=== PATIENT | female | born 1975 | race American Indian/Alaskan Native ===

== ENCOUNTER 2016-10-27 10:07 | Emergency (ER) | payer MEDICAID ==
[2016-10-27] MEDS ORDERED: VALIUM IV ONE ×2 (11:18→15:10)
[2016-10-27] MEDS ORDERED: NACL 0.9% 1000 ML 1,000 ML IV ONE (11:29)
[2016-10-27] MEDS ORDERED: SUBLIMAZE IV ONE ×2 (11:32→12:00)
[2016-10-27 11:53] LABS: Basophils % (Auto) 0.9 % (0.0-1.8); Eosinophils % (Auto) 2.3 % (0.0-4.3); Hematocrit 36.5 % (30.3-42.9); Hemoglobin 12.3 gm/dl (10.1-14.3); Mean Corpuscular HGB Conc 34 % (30-34); Mean Corpuscular Hemoglobin 32 pg (28-32); Mean Corpuscular Volume 96 fl (79-97); Red Blood Count 3.82 M/mm3 (3.65-5.03); Red Cell Distribution Width 13.3 % (13.2-15.2); White Blood Count 8.4 K/mm3 (4.5-11.0)
[2016-10-27 12:16] LABS: Alanine Aminotransferase 14 units/L (7-56); Albumin 3.5 g/dL (3.9-5); Albumin/Globulin Ratio 0.9 %; Alkaline Phosphatase 73 units/L (35-129); BUN/Creatinine Ratio 16.66; Bilirubin,Total 0.3 mg/dL (0.1-1.2); Blood Urea Nitrogen 10 mg/dL (7-17); Calcium 8.6 mg/dL (8.4-10.2); Carbon Dioxide 21 mmol/L (22-30); Chloride 104.1 mmol/L (98-107); Glucose 94 mg/dL (65-100); Lipase 16 units/L (13-60); Magnesium 1.9 mg/dL (1.7-2.3); Potassium 3.7 mmol/L (3.6-5.0); Sodium 139 mmol/L (137-145); Total Protein 7.3 g/dL (6.3-8.2)
[2016-10-27 12:19] LABS: Anion Gap 18 mmol/L
[2016-10-27 12:27] LABS: Platelet Count 244 K/mm3 (140-440)
[2016-10-27] MEDS ORDERED: ZOFRAN IV ONE ×3 (12:27→15:36)
[2016-10-27] MEDS ORDERED: KEPPRA PO ONE (13:18)
[2016-10-27] MEDS ORDERED: KEPPRA 1,000 MG/NS 0.75% 100ML 100 ML IV ONE (13:24)
--- NOTE | 2016-10-27 14:40 | Emergency Department Report ---
HPI - General Chief Complaint: Seizure Time Seen by Provider: 10/27/16 11:08 - HPI HPI: The patient is a 41-year-old female who presents for evaluation of seizure and abdominal pain. The patient states that she has experienced generalized abdominal pain for the past one day, constant, 10 out of 10 in severity, cramping and sharp in quality, and associated with nausea and multiple episodes of loose watery stools. The patient also reports expressing seizure-like activity or possible one hour prior to arrival, constant and severe for greater than 30 minutes. Regarding the patient's abdominal pain and seizure-like activity, the patient denies fever, blood in the stool, dark tarry stool, dysuria, hematuria, flank pain, genital discharge, headache, neck pain, paresthesias, lateralizing weakness, or other focal neurological deficit. ED Past Medical Hx - Past Medical History Hx Seizures: Yes Hx Psychiatric Treatment: Yes (depression, bipolar, schziophrenia) - Surgical History Additional Surgical History: Wrist fracture repair - Social History Smoking Status: Never Smoker Substance Use Type: None - Medications Home Medications: Home Medications Medication Instructions Recorded Confirmed Last Taken Type risperiDONE [RisperDAL] 6 mg PO BID 06/19/15 10/13/16 10/13/16 History Ibuprofen [Motrin] 800 mg PO Q8HR PRN #60 tablet 08/25/15 10/13/16 10/13/16 Rx traMADol [Ultram] 50 mg PO Q6HR PRN #14 tablet 08/25/15 10/13/16 10/13/16 Rx HYDROcodone/APAP 7.5-325 [[place] 1 each PO Q8HR PRN #10 tablet 10/27/16 Unknown Rx 7.5-325 mg TAB] Ondansetron [Zofran TAB] 4 mg PO Q8HR PRN #14 tablet 10/27/16 Unknown Rx levETIRAcetam [Keppra TAB] 500 mg PO BID #30 tablet 10/27/16 Unknown Rx ED Review of Systems ROS: Stated complaint: SEIZURE Other details as noted in HPI Constitutional: denies: fever ENT: denies: throat or neck pain Respiratory: denies: cough, shortness of breath Cardiovascular: denies: chest pain Endocrine: denies unexplained weight loss or gain Gastrointestinal: reports: abdominal pain, nausea Genitourinary: denies: dysuria Musculoskeletal: denies: leg swelling Skin: denies: rash Neurological: Reports seizure denies: headache Hematological/Lymphatic: denies: easy bleeding or easy bruising Psych: denies sadness or hopelessness Physical Exam - Physical Exam Vital Signs: Vital Signs 10/27/16 10/27/16 10:27 12:39 Temperature 98.7 F Pulse Rate 68 Respiratory 20 Rate Blood Pressure 118/58 O2 Sat by Pulse 28 L 100 Oximetry Physical Exam: General: well-nourished, well-developed, no acute distress Head: Normocephalic, atraumatic Eyes: normal sclera, PERRL, EOM intact, ENT: Mucous membranes are pale and dry Neck: No neck stiffness, no cervical adenopathy Respiratory: Breath sounds equal bilaterally, no wheezing, rales, or rhonchi Cardio: S1 and S2 present, no murmurs, rubs, gallops, capillary refill is delayed Abdomen: Normoactive bowel sounds, soft abdomen, generalized tenderness to palpation present, no rigidity, no guarding or rebound tenderness Musc: No pitting edema Skin: No rash Neuro: alert oriented x4, normal cognition, speech normal, no facial drooping, no uvula or tongue deviation on protrusion, no deficit with rotation of neck or shoulder shrug, no obvious gross motor deficit in the upper or lower extremities bilaterally, no obvious gross sensation deficit, 2+ symmetric reflexes on DTR testing, no coordination deficit with [id number] testing, Babinski downgoing Psych: Normal affect ED Course Vital Signs 10/27/16 10/27/16 10:27 12:39 Temperature 98.7 F Pulse Rate 68 Respiratory 20 Rate Blood Pressure 118/58 O2 Sat by Pulse 28 L 100 Oximetry ED Medical Decision Making - Lab Data Result diagrams: 10/27/16 11:45 10/27/16 11:45 - Medical Decision Making The patient was seen and examined by myself. The patient is placed on a [employer] and continuous pulse ox. On initial evaluation, the patient was found to be in no distress. Evaluation orders are placed. IV access is established and the patient is given 1 L normal saline fluid bolus for treatment of dehydration, and Zofran, and IV fentanyl for pain. Lab results were non-concerning including WBC, hemoglobin, hematocrit, electrolytes, renal function, LFTs, lipase, and neg preg test. The patient was reevaluated and reported her pain persisted. She was given an IV dose of Valium for her pain. The patient was again reevaluated and she now reports that her symptoms markedly improved. The patient is stable for discharge with outpatient follow- up. The patient is given follow-up and return instructions. The patient expressed understanding and agreed with the plan. The patient is discharged in stable condition. Critical care attestation.: If time is entered above; I have spent that time in minutes in the direct care of this critically ill patient, excluding procedure time. ED Disposition Clinical Impression: Pseudoseizure, Acute generalized abdominal pain, Dehydration Disposition: DISCHARGED TO HOME OR SELFCARE Is pt being admited?: No Does the pt Need Aspirin: No Condition: Stable Instructions: Gastroenteritis (ED), Dehydration (ED), Epilepsy (ED) Referrals: PRIMARY CARE, [Primary Care Provider] - 3-5 Days Time of Disposition: 14:35
[2016-10-27] MEDS ORDERED: MORPHINE IV ONE (15:10)
[2016-10-27 16:38] VITALS: BP 123/73
== END 2016-10-27 16:25 | disposition home or self-care (01) ==
LOC: ED 10:07
DX: R56.9 Unspecified convulsions (principal); E86.0 Dehydration; R10.84 Generalized abdominal pain; F31.9 Bipolar disorder, unspecified; F20.9 Schizophrenia, unspecified
CPT/HCPCS: 36415; 80053; 83690; 83735; 83880; 84703; 85025; 87493; 96361; 96365; 96375; 96376; 99284; J1953; J2270; J2405; J3010; J3360; J7030

== ENCOUNTER 2017-04-12 18:10 | Emergency (ER) | payer MEDICAID ==
[2017-04-12 18:36] VITALS: BP 125/87
[2017-04-12 19:10] LABS: Basophils % (Auto) 0.7 % (0.0-1.8); Eosinophils % (Auto) 2.3 % (0.0-4.3); Mean Corpuscular HGB Conc 34 % (30-34); Mean Corpuscular Hemoglobin 33 pg (28-32); Mean Corpuscular Volume 95 fl (79-97); Platelet Count 333 K/mm3 (140-440); Red Blood Count 3.99 M/mm3 (3.65-5.03); Red Cell Distribution Width 13.2 % (13.2-15.2); White Blood Count 8.8 K/mm3 (4.5-11.0)
[2017-04-12 19:22] LABS: Anion Gap 16 mmol/L; Blood Urea Nitrogen 9 mg/dL (7-17); Calcium 9.1 mg/dL (8.4-10.2); Carbon Dioxide 24 mmol/L (22-30); Chloride 99.1 mmol/L (98-107); Glucose 90 mg/dL (65-100); Potassium 3.3 mmol/L (3.6-5.0); Sodium 136 mmol/L (137-145)
--- NOTE | 2017-04-15 11:33 | ED Elopement Review ---
ED Pt Elopement review - Results review Lab results: Laboratory Tests 04/12/17 04/12/17 04/12/17 18:43 18:43 18:43 WBC RBC Hgb Hct MCV MCH MCHC RDW Plt Count Lymph % (Auto) [place] % (Auto) Eos % (Auto) Baso % (Auto) Lymph # [place] # Eos # Baso # Seg Neutrophils % Seg Neutrophils # Sodium 136 L Potassium 3.3 L Chloride 99.1 Carbon Dioxide 24 Anion Gap 16 BUN 9 Creatinine 0.5 L Estimated GFR > 60 BUN/Creatinine Ratio 18.00 Glucose 90 Calcium 9.1 HCG, Qual Negative Plasma/Serum Alcohol < 0.01 04/12/17 18:43 WBC 8.8 RBC 3.99 Hgb 13.0 Hct 38.0 MCV 95 MCH 33 H MCHC 34 RDW 13.2 Plt Count 333 Lymph % (Auto) 29.9 [place] % (Auto) 5.3 Eos % (Auto) 2.3 Baso % (Auto) 0.7 Lymph # 2.6 [place] # 0.5 Eos # 0.2 Baso # 0.1 Seg Neutrophils % 61.8 Seg Neutrophils # 5.5 Sodium Potassium Chloride Carbon Dioxide Anion Gap BUN Creatinine Estimated GFR BUN/Creatinine Ratio Glucose Calcium HCG, Qual Plasma/Serum Alcohol - Call Back decision Pt Call Back Decision: No action required
== END 2017-04-12 21:45 | disposition left against medical advice (07) ==
LOC: ED 18:10
DX: R56.9 Unspecified convulsions (principal); Z53.21 Procedure and treatment not carried out due to patient leaving prior to being seen by health care provider
CPT/HCPCS: 36415; 80048; 84703; 85025; G0480; 80320

== ENCOUNTER 2020-08-17 19:35 | Emergency (ER) | payer MEDICAID ==
[2020-08-17] MEDS ORDERED: SODIUM CHLORIDE 0.9% 1000 ML 1,000 ML IV ONE (20:03)
[2020-08-17] MEDS ORDERED: levETIRAcetam 1000 MG/NS 0.75% 1,000 MG/100 ML BAG IV ONE (20:03)
--- NOTE | 2020-08-17 20:16 | Emergency Department Report ---
HPI - General Chief Complaint: Seizure Time Seen by Provider: 08/17/20 20:03 - HPI HPI: This is a 45-year-old female presents to the emergency department via EMS from home after the patient had a witnessed seizure by her family just prior to arrival. At the time my examination the patient is awake, alert, oriented and in no acute distress. She does admit to a seizure history and also admits to medication noncompliance with her Keppra. She says that she takes 1000 mg 3 times daily. She says that she last had a seizure about 2 months ago. She adm its to some occasional alcohol consumption but no history of alcohol dependence and she did not drink any alcohol today. The patient also appears to have a history of schizophrenia. She says that she has been running out of her Xanax "at the end of the month." Patient does not currently have a primary care physician or neurologist. She was given 2 mg of Ativan in route with EMS. ED Past Medical Hx - Past Medical History Hx Seizures: Yes Hx Psychiatric Treatment: Yes (depression, bipolar, schziophrenia) - Surgical History Past Surgical History?: Yes Additional Surgical History: Wrist fracture repair - Social History Smoking Status: Never Smoker Substance Use Type: Alcohol - Medications Home Medications: Home Medications Medication Instructions Recorded Confirmed Last Taken Type risperiDONE [RisperDAL] 6 mg PO BID 06/19/15 10/13/16 10/13/16 History Ibuprofen [Motrin] 800 mg PO Q8HR PRN #60 tablet 08/25/15 10/13/16 10/13/16 Rx traMADoL [Ultram] 50 mg PO Q6HR PRN #14 tablet 08/25/15 10/13/16 10/13/16 Rx HYDROcodone/APAP 7.5-325 [[place] 1 each PO Q8HR PRN #10 tablet 10/27/16 Unknown Rx 7.5-325 mg TAB] Ondansetron [Zofran TAB] 4 mg PO Q8HR PRN #14 tablet 10/27/16 Unknown Rx levETIRAcetam [Keppra TAB] 1,000 mg PO BID #60 tab 08/17/20 Unknown Rx levETIRAcetam [Keppra TAB] 500 mg PO BID #30 tablet 08/17/20 Unknown Rx ED Review of Systems ROS: Stated complaint: SZ Other details as noted in HPI Comment: All other systems reviewed and negative Constitutional: denies: chills, fever Eyes: denies: eye pain, vision change ENT: denies: ear pain, throat pain Respiratory: denies: cough, shortness of breath Cardiovascular: denies: chest pain, palpitations Gastrointestinal: denies: abdominal pain, vomiting Genitourinary: denies: dysuria, discharge Musculoskeletal: denies: back pain, arthralgia Skin: denies: rash, lesions Neurological: other (seizure). denies: weakness Physical Exam - Physical Exam Vital Signs: Vital Signs 08/17/20 08/17/20 19:43 20:07 Temperature 98.7 F Pulse Rate 76 Respiratory 16 Rate Blood Pressure 130/84 Physical Exam: GENERAL: The patient is well-developed well-nourished. HENT: Normocephalic. Atraumatic. Patient has moist mucous membranes. EYES: Extraocular motions are intact. No nystagmus. NECK: Supple. Trachea is midline. CHEST/LUNGS: Clear to auscultation. There is no respiratory distress noted. HEART/CARDIOVASCULAR: Regular. There is no tachycardia. ABDOMEN: Abdomen is soft, nontender. Patient has normal bowel sounds. SKIN: Skin is warm and dry. NEURO: The patient is awake, alert, and oriented. The patient is cooperative. The patient has no focal neurologic deficits. Normal speech. Cranial nerves II through XII grossly intact. No facial asymmetry. MUSCULOSKELETAL: There is no tenderness or deformity. ED Course Vital Signs 08/17/20 08/17/20 19:43 20:07 Temperature 98.7 F Pulse Rate 76 Respiratory 16 Rate Blood Pressure 130/84 - Reevaluation(s) Reevaluation #1: 08/17/20 22:35 Lab Results 08/17/20 08/17/20 08/17/20 Range/Units 19:55 20:10 20:10 WBC (4.5-11.0) K/mm3 RBC (3.65-5.03) M/mm3 Hgb (10.1-14.3) gm/dl Hct (30.3-42.9) % MCV (79-97) fl MCH (28-32) pg MCHC (30-34) % RDW (13.2-15.2) % Plt Count (140-440) K/mm3 Sodium 134 L (137-145) mmol/L Potassium 4.2 (3.6-5.0) mmol/L Chloride 102.0 (98-107) mmol/L Carbon Dioxide 20 L (22-30) mmol/L Anion Gap 16 mmol/L BUN 13 (7-17) mg/dL Creatinine 0.7 (0.6-1.2) mg/dL Estimated GFR > 60 ml/min BUN/Creatinine Ratio 19 % Glucose 91 (65-100) mg/dL Calcium 8.9 (8.4-10.2) mg/dL Total Bilirubin 0.30 (0.1-1.2) mg/dL Direct Bilirubin < 0.2 (0-0.2) mg/dL Indirect Bilirubin 0.1 mg/dL AST 14 (5-40) units/L ALT 12 (7-56) units/L Alkaline Phosphatase 68 (35-129) units/L Total Creatine Kinase 114 (30-135) units/L Total Protein 7.5 (6.3-8.2) g/dL Albumin 4.1 (3.9-5) g/dL Albumin/Globulin Ratio 1.2 % Plasma/Serum Alcohol < 0.01 (0-0.07) % 08/17/ Range/Units 21:09 WBC 7.8 (4.5-11.0) K/mm3 RBC 3.35 L (3.65-5.03) M/mm3 Hgb 11.7 (10.1-14.3) gm/dl Hct 33.7 (30.3-42.9) % MCV 101 H (79-97) fl MCH 35 H (28-32) pg MCHC 35 H (30-34) % RDW 12.0 L (13.2-15.2) % Plt Count 236 (140-440) K/mm3 Sodium (137-145) mmol/L Potassium (3.6-5.0) mmol/L Chloride (98-107) mmol/L Carbon Dioxide (22-30) mmol/L Anion Gap mmol/L BUN (7-17) mg/dL Creatinine (0.6-1.2) mg/dL Estimated GFR ml/min BUN/Creatinine Ratio % Glucose (65-100) mg/dL Calcium (8.4-10.2) mg/dL Total Bilirubin (0.1-1.2) mg/dL Direct Bilirubin (0-0.2) mg/dL Indirect Bilirubin mg/dL AST (5-40) units/L ALT (7-56) units/L Alkaline Phosphatase (35-129) units/L Total Creatine Kinase (30-135) units/L Total Protein (6.3-8.2) g/dL Albumin (3.9-5) g/dL Albumin/Globulin Ratio % Plasma/Serum Alcohol (0-0.07) % ED Medical Decision Making - Lab Data Result diagrams: 08/17/20 21:09 08/17/20 19:55 - EKG Data -: EKG Interpreted by Me EKG shows normal: sinus rhythm, axis, intervals, QRS complexes, ST-T waves Rate: normal - EKG Data When compared to previous EKG there are: previous EKG unavailable Interpretation: normal EKG - Medical Decision Making This patient presents to the emergency department after having a witnessed seizure at home. Since being in the emergency department she has been awake, alert, oriented. There is no focal, motor or sensory deficits and her cranial nerves are intact. Patient was loaded with 1 g of Keppra. EKG did not have any morphology consistent with ST elevation myocardial infarction or any arrhythmia. The patient's labs have been mostly unremarkable including CBC, metabolic panel, CK level, and blood alcohol level. As the patient has a known seizure history and has been noncompliant with her medications, and since the patient has only had 1 seizure, I did not feel that advanced CT imaging of the head was necessary at this time. She has been reevaluated multiple times over about 3 hours in this emergency department without any return of any seizure-like activity. She will be discharged home to follow-up with primary care and neurology. The patient previously was on 500 mg of Keppra twice daily when she was last here in 2017. The patient says that she is on 3 g of Keppra a day, h owever, the patient has been without her medication for 1 to 2 months. She will be restarted on Keppra at 1000 mg twice daily. We discussed staying away from alcohol, heavy caffeine use and getting appropriate amount of sleep. We also discussed that the patient is unable to drive a vehicle or operate heavy machinery for at least 6 months, or until cleared by a neurologist. She will return to the emergency department with any worsening of her symptoms or with any acute distress. Critical care attestation.: If time is entered above; I have spent that time in minutes in the direct care of this critically ill patient, excluding procedure time. ED Disposition Clinical Impression: Seizure disorder Disposition: DC-01 TO HOME OR SELFCARE Is pt being admited?: No Condition: Stable Instructions: Recurrent Seizures Adult (ED) Additional Instructions: Please follow-up with a primary care physician in the next few days. I am also giving you a referral for a local neurologist, Dr. Mcnamara, to follow-up regarding your seizure disorder. Take the medications as prescribed. Try to stay away from alcohol, heavy caffeine use. Please try to get 8 hours of uninterrupted sleep at night. Return to the emergency department with any worsening of your symptoms, new or concerning symptoms not addressed during this current emergency department visit, or with any acute distress. Prescriptions: levETIRAcetam [Keppra TAB] 1,000 mg PO BID #60 tab levETIRAcetam [Keppra TAB] 500 mg PO BID #30 tablet Referrals: MINI MCNAMARA MD [Referring] - 3-5 Days YAMILET HEALY MD [Staff Physician] - 3-5 Days [facility] [Provider Group] - 3-5 Days Time of Disposition: 22:12
[2020-08-17 20:41] LABS: Blood Urea Nitrogen 13 mg/dL (7-17); Calcium 8.9 mg/dL (8.4-10.2); Hemolysis Index 85
[2020-08-17 20:52] LABS: BUN/Creatinine Ratio 19
[2020-08-17 21:00] LABS: Alanine Aminotransferase 12 units/L (7-56); Albumin 4.1 g/dL (3.9-5)
[2020-08-17 21:10] LABS: Bilirubin,Direct < 0.2 mg/dL (0-0.2)
[2020-08-17 21:50] LABS: Hematocrit 33.7 % (30.3-42.9); Hemoglobin 11.7 gm/dl (10.1-14.3); Mean Corpuscular HGB Conc 35 % (30-34); Mean Corpuscular Volume 101 fl (79-97); Platelet Count 236 K/mm3 (140-440); Red Blood Count 3.35 M/mm3 (3.65-5.03)
[2020-08-17 22:35] VITALS: BP 116/66
== END 2020-08-18 23:00 | disposition home or self-care (01) ==
LOC: ED 19:35
DX: G40.909 Epilepsy, unspecified, not intractable, without status epilepticus (principal)
CPT/HCPCS: 36415; 80048; 80076; 82550; 85027; 93005; 96374; 99283; J1953; J7030; 80320; G0480

== ENCOUNTER 2020-10-16 10:05 | Emergency (ER) | payer MEDICAID ==
[2020-10-16] MEDS ORDERED: levETIRAcetam 1000 MG/NS 0.75% 1,000 MG/100 ML BAG IV ONE (11:11)
--- NOTE | 2020-10-16 11:14 | Emergency Department Report ---
HPI - General Chief Complaint: Seizure Time Seen by Provider: 10/16/20 11:07 - HPI HPI: This is a 45-year-old -[place] female presents to the emergency department via EMS from home after she was found seizing by family prior to presentation. Patient was given 2 mg of Ativan intranasally in route. I saw this patient 2 months ago for similar symptoms. She has a history of seizure disorder for which the patient is on Keppra. She also has a history of schizophrenia and there is previous record of "pseudoseizures." At the time of my examination the patient is either postictal or sedated and is currently a poor historian. ED Past Medical Hx - Past Medical History Previous Medical History?: Yes Hx Seizures: Yes Hx Psychiatric Treatment: Yes (depression, bipolar, schziophrenia) - Surgical History Additional Surgical History: Wrist fracture repair - Social History Smoking Status: Unknown if ever smoked - Medications Home Medications: Home Medications Medication Instructions Recorded Confirmed Last Taken Type risperiDONE [RisperDAL] 6 mg PO BID 06/19/15 10/13/16 10/13/16 History Ibuprofen [Motrin] 800 mg PO Q8HR PRN #60 tablet 08/25/15 10/13/16 10/13/16 Rx traMADoL [Ultram] 50 mg PO Q6HR PRN #14 tablet 08/25/15 10/13/16 10/13/16 Rx HYDROcodone/APAP 7.5-325 [[place] 1 each PO Q8HR PRN #10 tablet 10/27/16 Unknown Rx 7.5-325 mg TAB] Ondansetron [Zofran TAB] 4 mg PO Q8HR PRN #14 tablet 10/27/16 Unknown Rx levETIRAcetam [Keppra TAB] 1,000 mg PO BID #60 tab 08/17/20 Unknown Rx levETIRAcetam [Keppra TAB] 500 mg PO BID #30 tablet 08/17/20 Unknown Rx ED Review of Systems ROS: Stated complaint: SEIZURE Other details as noted in HPI Comment: Unobtainable due to pts medical conditions Physical Exam - Physical Exam Physical Exam: GENERAL: The patient is well-developed well-nourished. HENT: Normocephalic. Atraumatic. Patient has moist mucous membranes. EYES: Extraocular motions are intact. NECK: Supple. Trachea is midline. CHEST/LUNGS: Clear to auscultation. There is no respiratory distress noted. HEART/CARDIOVASCULAR: Regular. There is no tachycardia. There is no murmur. ABDOMEN: Abdomen is soft, nontender. Patient has normal bowel sounds. There is no abdominal distention. SKIN: Skin is warm and dry. NEURO: The patient is awake, alert, and cooperative. The patient has no focal neurologic deficits. Normal speech. Cranial nerves II through XII grossly intact. MUSCULOSKELETAL: There is no tenderness or deformity. There is no limitation range of motion. ED Medical Decision Making - Lab Data Result diagrams: 10/16/20 11:19 10/16/20 11:19 Lab Results 10/16/20 10/16/20 10/16/20 Range/Units 11:19 11:19 11:19 WBC 7.3 (4.5-11.0) K/mm3 RBC 3.52 L (3.65-5.03) M/mm3 Hgb 12.5 (10.1-14.3) gm/dl Hct 34.6 (30.3-42.9) % MCV 98 H (79-97) fl MCH 36 H (28-32) pg MCHC 36 H (30-34) % RDW 12.9 L (13.2-15.2) % Plt Count 258 (140-440) K/mm3 Lymph % (Auto) 23.4 (13.4-35.0) % [place] % (Auto) 6.6 (0.0-7.3) % Eos % (Auto) 0.7 (0.0-4.3) % Baso % (Auto) 0.9 (0.0-1.8) % Lymph # (Auto) 1.7 (1.2-5.4) K/mm3 [place] # (Auto) 0.5 (0.0-0.8) K/mm3 Eos # (Auto) 0.1 (0.0-0.4) K/mm3 Baso # (Auto) 0.1 (0.0-0.1) K/mm3 Seg Neutrophils % 68.4 (40.0-70.0) % Seg Neutrophils # 5.0 (1.8-7.7) K/mm3 Sodium 139 (137-145) mmol/L Potassium 3.7 (3.6-5.0) mmol/L Chloride 106.4 (98-107) mmol/L Carbon Dioxide 20 L (22-30) mmol/L Anion Gap 16 mmol/L BUN 11 (7-17) mg/dL Creatinine 0.6 (0.6-1.2) mg/dL Estimated GFR > 60 ml/min BUN/Creatinine Ratio 18 % Glucose 74 (65-100) mg/dL Calcium 8.9 (8.4-10.2) mg/dL Total Bilirubin 0.50 (0.1-1.2) mg/dL AST 19 (5-40) units/L ALT 14 (7-56) units/L Alkaline Phosphatase 60 (35-129) units/L Total Creatine Kinase (30-135) units/L Total Protein 7.6 (6.3-8.2) g/dL Albumin 4.1 (3.9-5) g/dL Albumin/Globulin Ratio 1.2 % Urine Color (Yellow) Urine Turbidity (Clear) Urine pH (5.0-7.0) Ur Specific [place] (1.003-1.030) Urine Protein (Negative) mg/dL Urine Glucose (UA) (Negative) mg/dL Urine Ketones (Negative) mg/dL Urine Blood (Negative) Urine Nitrite (Negative) Urine Bilirubin (Negative) Urine Urobilinogen (<2.0) mg/dL Ur Leukocyte Esterase (Negative) Urine WBC (Auto) (0.0-6.0) /HPF Urine RBC (Auto) (0.0-6.0) /HPF U Epithel Cells (Auto) (0-13.0) /HPF Urine Mucus /HPF Urine Opiates Screen Urine Methadone Screen Ur Barbiturates Screen Ur Phencyclidine Scrn Ur Amphetamines Screen U Benzodiazepines Scrn Urine Cocaine Screen U Marijuana (THC) Screen Drugs of Abuse Note Plasma/Serum Alcohol 0.08 H (0-0.07) % 10/16/20 10/16/20 10/16/20 Range/Units 11:19 13:00 13:00 WBC (4.5-11.0) K/mm3 RBC (3.65-5.03) M/mm3 Hgb (10.1-14.3) gm/dl Hct (30.3-42.9) % MCV (79-97) fl MCH (28-32) pg MCHC (30-34) % RDW (13.2-15.2) % Plt Count (140-440) K/mm3 Lymph % (Auto) (13.4-35.0) % [place] % (Auto) (0.0-7.3) % Eos % (Auto) (0.0-4.3) % Baso % (Auto) (0.0-1.8) % Lymph # (Auto) (1.2-5.4) K/mm3 [place] # (Auto) (0.0-0.8) K/mm3 Eos # (Auto) (0.0-0.4) K/mm3 Baso # (Auto) (0.0-0.1) K/mm3 Seg Neutrophils % (40.0-70.0) % Seg Neutrophils # (1.8-7.7) K/mm3 Sodium (137-145) mmol/L Potassium (3.6-5.0) mmol/L Chloride (98-107) mmol/L Carbon Dioxide (22-30) mmol/L Anion Gap mmol/L BUN (7-17) mg/dL Creatinine (0.6-1.2) mg/dL Estimated GFR ml/min BUN/Creatinine Ratio % Glucose (65-100) mg/dL Calcium (8.4-10.2) mg/dL Total Bilirubin (0.1-1.2) mg/dL AST (5-40) units/L ALT (7-56) units/L Alkaline Phosphatase (35-129) units/L Total Creatine Kinase 244 H (30-135) units/L Total Protein (6.3-8.2) g/dL Albumin (3.9-5) g/dL Albumin/Globulin Ratio % Urine Color Yellow (Yellow) Urine Turbidity Clear (Clear) Urine pH 5.0 (5.0-7.0) Ur Specific [place] 1.012 (1.003-1.030) Urine Protein <15 mg/dl (Negative) mg/dL Urine Glucose (UA) Neg (Negative) mg/dL Urine Ketones Tr (Negative) mg/dL Urine Blood Neg (Negative) Urine Nitrite Neg (Negative) Urine Bilirubin Neg (Negative) Urine Urobilinogen < 2.0 (<2.0) mg/dL Ur Leukocyte Esterase Neg (Negative) Urine WBC (Auto) 4.0 (0.0-6.0) /HPF Urine RBC (Auto) 4.0 (0.0-6.0) /HPF U Epithel Cells (Auto) 2.0 (0-13.0) /HPF Urine Mucus Few /HPF Urine Opiates Screen Negative Urine Methadone Screen Negative Ur Barbiturates Screen Negative Ur Phencyclidine Scrn Negative Ur Amphetamines Screen Positive U Benzodiazepines Scrn Positive Urine Cocaine Screen Positive U Marijuana (THC) Screen Positive Drugs of Abuse Note Disclamer Plasma/Serum Alcohol (0-0.07) % - EKG Data -: EKG Interpreted by Me EKG shows normal: sinus rhythm, axis, intervals, QRS complexes, ST-T waves Rate: normal - EKG Data When compared to previous EKG there are: previous EKG unavailable Interpretation: normal EKG - Medical Decision Making This patient presented to the emergency department after an alleged witnessed seizure prior to presentation. The patient does present either postictal or slightly sedated. However, shortly after her arrival the patient became more awake and oriented and remained so throughout the rest of her ED course. The patient did admit to drinking alcohol last night. The blood alcohol level came back at 0.08 when it was first drawn this morning, which leads me to believe that she had a high blood alcohol level when she went to sleep last night. The patient's labs also show a urine drug screen positive for amphetamines, cocaine, marijuana and benzodiazepines. Vital signs have been reassuring throughout her ED course including being afebrile. The patient has been reevaluated multiple t imes over more than 7 hours and there has been no further seizure-like activity or any deficits seen. The patient has no focal, motor or sensory deficits and her cranial nerves are intact. She was loaded with a gram of Keppra. The patient will be discharged home to follow-up with primary care and neurology. We discussed staying away from alcohol and illicit drugs as this will decrease her seizure threshold. The patient understands that she is unable to drive or operate heavy machinery for at least 6 months, or until cleared by neurology. She will return to the closest emergency department with any further seizure- like activity, any new concerns or complaints, or with any acute distress. Critical Care Time: No Critical care attestation.: If time is entered above; I have spent that time in minutes in the direct care of this critically ill patient, excluding procedure time. ED Disposition Clinical Impression: Seizure, Polysubstance abuse Disposition: TO HOME OR SELFCARE Is pt being admited?: No Condition: Stable Instructions: Substance Use Disorder, Seizure, Adult Additional Instructions: Please follow-up with a primary care physician in the next few days. I have also given you a referral for a local neurologist, Dr. Mcnamara, to follow-up regarding your seizure disorder. Due to your seizures, you are not allowed to drive or operate any heavy machinery for at least 6 months or until cleared by a neurologist to do so. Please avoid any further alcohol consumption or illicit drug use as this will decrease your seizure threshold. Make sure to try and get 8 hours of uninterrupted sleep per night. Please avoid any heavy caffeine use. Return to the emergency department with any worsening of your symptoms, new or concerning symptoms not addressed during this current emergency department visit, or with any acute distress. Referrals: PRIMARY CAREMD [Primary Care Provider] - 2-3 Days MINI MCNAMARA MD [Referring] - 3-5 Days Time of Disposition: 16:01
[2020-10-16 11:39] LABS: Basophils # (Auto) 0.1 K/mm3 (0.0-0.1); Basophils % (Auto) 0.9 % (0.0-1.8); Eosinophils # (Auto) 0.1 K/mm3 (0.0-0.4); Eosinophils % (Auto) 0.7 % (0.0-4.3); Hematocrit 34.6 % (30.3-42.9); Hemoglobin 12.5 gm/dl (10.1-14.3); Lymphocytes # (Auto) 1.7 K/mm3 (1.2-5.4); Lymphocytes % (Auto) 23.4 % (13.4-35.0); Mean Corpuscular HGB Conc 36 % (30-34); Mean Corpuscular Volume 98 fl (79-97); Monocytes # (Auto) 0.5 K/mm3 (0.0-0.8); Monocytes % (Auto) 6.6 % (0.0-7.3); Platelet Count 258 K/mm3 (140-440); Red Blood Count 3.52 M/mm3 (3.65-5.03); Red Cell Distribution Width 12.9 % (13.2-15.2)
[2020-10-16 11:53] LABS: Alanine Aminotransferase 14 units/L (7-56); Albumin 4.1 g/dL (3.9-5); Blood Urea Nitrogen 11 mg/dL (7-17); Calcium 8.9 mg/dL (8.4-10.2); Hemolysis Index 12
[2020-10-16 11:54] LABS: BUN/Creatinine Ratio 18
[2020-10-16] MEDS ORDERED: THIAMINE 100 MG, FOLIC ACID 1 MG, MULTIPLE VITAMIN INJ, ADULT 10 ML in SODIUM CHLORIDE ... IV ONE (12:21)
[2020-10-16 15:43] LABS: Bilirubin,Urine NEG (Negative); Blood,Urine NEG (Negative); Color,Urine Yellow (Yellow); Mucus,Urine FEW /HPF; Protein,Urine <15 mg/dL mg/dL (Negative); Urobilinogen,Urine < 2.0 mg/dL (<2.0)
[2020-10-16 15:44] LABS: Methadone Screen,Urine Negative; Opiate Screen,Urine Negative
[2020-10-16 15:59] LABS: Amphetamine Screen,Urine Positive; Benzodiazepines Screen,Urine Positive; Cannabinoid Screen,Urine Positive; Cocaine Screen,Urine Positive
[2020-10-16 16:46] VITALS: BP 123/74
== END 2020-10-16 16:02 | disposition home or self-care (01) ==
LOC: ED 10:05
DX: R56.9 Unspecified convulsions (principal); F19.10 Other psychoactive substance abuse, uncomplicated; F31.9 Bipolar disorder, unspecified; F20.9 Schizophrenia, unspecified; Z98.890 Other specified postprocedural states; Z79.1 Long term (current) use of non-steroidal anti-inflammatories (NSAID); Z79.899 Other long term (current) drug therapy; Z88.8 Allergy status to other drugs, medicaments and biological substances
CPT/HCPCS: 36415; 80053; 80307; 81001; 82550; 85025; 93005; 96365; 96366; 96367; 99284; J1953; J3411; J7030; 80320; G0480

== ENCOUNTER 2021-05-30 14:59 | Emergency (ER) | payer MEDICAID ==
[2021-05-30] MEDS ORDERED: SODIUM CHLORIDE 0.9% 1000 ML 1,000 ML IV ONE (16:30)
[2021-05-30] MEDS ORDERED: levETIRAcetam 1000 MG/NS 0.75% 1,000 MG/100 ML BAG IV ONE (16:30)
--- NOTE | 2021-05-30 16:34 | Emergency Department Report ---
HPI - General Chief Complaint: Seizure Time Seen by Provider: 05/30/21 16:30 - HPI HPI: This is a 45-year-old -[place] female presents to the emergency department via EMS from home with complaint of seizures. The patient does have a seizure history for which she takes Keppra. She is compliant with 1000 mg twice daily but was slightly late on taking her medication today. Patient says that she last had a seizure about 3 weeks ago and was seen at [facility]. She complains of a mild generalized headache and some body aches, but denies any fev er, chest pain, shortness of breath, vision change, slurred speech, numbness or paresthesias. The patient had a witnessed seizure with family just prior to presentation and was just given her Keppra prior to the seizure. The patient was still slightly postictal when EMS arrived, but they say that she had another witnessed seizure with them and she was given 2 mg of Ativan. At the time of my examination the patient is awake, alert, oriented. ED Past Medical Hx - Past Medical History Hx Seizures: Yes Hx Psychiatric Treatment: Yes (depression, bipolar, schziophrenia) - Surgical History Additional Surgical History: Wrist fracture repair - Social History Smoking Status: Unknown if ever smoked - Medications Home Medications: Home Medications Medication Instructions Recorded Confirmed Last Taken Type risperiDONE [RisperDAL] 6 mg PO BID 06/19/15 10/13/16 10/13/16 History Ibuprofen [Motrin] 800 mg PO Q8HR PRN #60 tablet 08/25/15 10/13/16 10/13/16 Rx traMADoL [Ultram] 50 mg PO Q6HR PRN #14 tablet 08/25/15 10/13/16 10/13/16 Rx HYDROcodone/APAP 7.5-325 [[place] 1 each PO Q8HR PRN #10 tablet 10/27/16 Unknown Rx 7.5-325 mg TAB] Ondansetron [Zofran TAB] 4 mg PO Q8HR PRN #14 tablet 10/27/16 Unknown Rx levETIRAcetam [Keppra TAB] 1,000 mg PO BID #60 tab 08/17/20 Unknown Rx levETIRAcetam [Keppra TAB] 500 mg PO BID #30 tablet 08/17/20 Unknown Rx ED Review of Systems ROS: Stated complaint: SEIZURE Other details as noted in HPI Comment: All other systems reviewed and negative Constitutional: denies: chills, fever Eyes: denies: eye pain, vision change ENT: denies: ear pain, throat pain Respiratory: denies: cough, shortness of breath Cardiovascular: denies: chest pain, palpitations Gastrointestinal: denies: abdominal pain, vomiting Genitourinary: denies: dysuria, discharge Musculoskeletal: myalgia. denies: joint swelling Skin: denies: rash, lesions Neurological: headache, other (Seizure). denies: weakness, numbness, paresthesi as Physical Exam - Physical Exam Physical Exam: GENERAL: The patient is well-developed well-nourished. HENT: Normocephalic. Atraumatic. Patient has moist mucous membranes. EYES: Extraocular motions are intact. No nystagmus. NECK: Supple. Trachea is midline. CHEST/LUNGS: Clear to auscultation. There is no respiratory distress noted. HEART/CARDIOVASCULAR: Regular. There is no tachycardia. There is no murmur. ABDOMEN: Abdomen is soft, nontender. Patient has normal bowel sounds. SKIN: Skin is warm and dry. NEURO: The patient is awake, alert, and oriented. The patient is cooperative. The patient has no focal neurologic deficits. Normal speech. Cranial nerves II through XII grossly intact. No facial asymmetry. No pronator drift or dysmetria. MUSCULOSKELETAL: There is no tenderness or deformity. There is no limitation range of motion. ED Medical Decision Making - Lab Data Result diagrams: 05/30/21 16:43 05/30/21 16:43 Lab Results 05/30/21 05/30/21 05/30/21 Range/Units 16:43 16:43 16:43 WBC 6.9 (4.5-11.0) K/mm3 RBC 3.44 L (3.65-5.03) M/mm3 Hgb 12.2 (10.1-14.3) gm/dl Hct 34.2 (30.3-42.9) % MCV 100 H (79-97) fl MCH 35 H (28-32) pg MCHC 36 H (30-34) % RDW 13.7 (13.2-15.2) % Plt Count 320 (140-440) K/mm3 Lymph % (Auto) 29.8 (13.4-35.0) % [place] % (Auto) 9.3 H (0.0-7.3) % Eos % (Auto) 1.3 (0.0-4.3) % Baso % (Auto) 0.3 (0.0-1.8) % Lymph # (Auto) 2.0 (1.2-5.4) K/mm3 [place] # (Auto) 0.6 (0.0-0.8) K/mm3 Eos # (Auto) 0.1 (0.0-0.4) K/mm3 Baso # (Auto) 0.0 (0.0-0.1) K/mm3 Seg Neutrophils % 59.3 (40.0-70.0) % Seg Neutrophils # 4.1 (1.8-7.7) K/mm3 Sodium 137 (137-145) mmol/L Potassium 3.7 (3.6-5.0) mmol/L Chloride 101.7 (98-107) mmol/L Carbon Dioxide 24 (22-30) mmol/L Anion Gap 15 mmol/L BUN 11 (7-17) mg/dL Creatinine 0.6 (0.6-1.2) mg/dL Estimated GFR > 60 ml/min BUN/Creatinine Ratio 18 % Glucose 75 (65-100) mg/dL Calcium 9.2 (8.4-10.2) mg/dL Total Bilirubin 0.40 (0.1-1.2) mg/dL AST 16 (5-40) units/L ALT 10 (7-56) units/L Alkaline Phosphatase 70 (35-129) units/L Total Creatine Kinase 215 H (30-135) units/L Total Protein 7.3 (6.3-8.2) g/dL Albumin 4.1 (3.9-5) g/dL Albumin/Globulin Ratio 1.3 % Urine Color (Yellow) Urine Turbidity (Clear) Urine pH (5.0-7.0) Ur Specific [place] (1.003-1.030) Urine Protein (Negative) mg/dL Urine Glucose (UA) (Negative) mg/dL Urine Ketones (Negative) mg/dL Urine Blood (Negative) Urine Nitrite (Negative) Urine Bilirubin (Negative) Urine Urobilinogen (<2.0) mg/dL Ur Leukocyte Esterase (Negative) Urine WBC (Auto) (0.0-6.0) /HPF Urine RBC (Auto) (0.0-6.0) /HPF U Epithel Cells (Auto) (0-13.0) /HPF Urine Bacteria (Auto) (Negative) /HPF Urine Mucus /HPF Urine Opiates Screen Urine Methadone Screen Ur Barbiturates Screen Ur Phencyclidine Scrn Ur Amphetamines Screen U Benzodiazepines Scrn Urine Cocaine Screen U Marijuana (THC) Screen Drugs of Abuse Note 05/30/21 05/30/21 Range/Units 18:28 18:28 WBC (4.5-11.0) K/mm3 RBC (3.65-5.03) M/mm3 Hgb (10.1-14.3) gm/dl Hct (30.3-42.9) % MCV (79-97) fl MCH (28-32) pg MCHC (30-34) % RDW (13.2-15.2) % Plt Count (140-440) K/mm3 Lymph % (Auto) (13.4-35.0) % [place] % (Auto) (0.0-7.3) % Eos % (Auto) (0.0-4.3) % Baso % (Auto) (0.0-1.8) % Lymph # (Auto) (1.2-5.4) K/mm3 [place] # (Auto) (0.0-0.8) K/mm3 Eos # (Auto) (0.0-0.4) K/mm3 Baso # (Auto) (0.0-0.1) K/mm3 Seg Neutrophils % (40.0-70.0) % Seg Neutrophils # (1.8-7.7) K/mm3 Sodium (137-145) mmol/L Potassium (3.6-5.0) mmol/L Chloride (98-107) mmol/L Carbon Dioxide (22-30) mmol/L Anion Gap mmol/L BUN (7-17) mg/dL Creatinine (0.6-1.2) mg/dL Estimated GFR ml/min BUN/Creatinine Ratio % Glucose (65-100) mg/dL Calcium (8.4-10.2) mg/dL Total Bilirubin (0.1-1.2) mg/dL AST (5-40) units/L ALT (7-56) units/L Alkaline Phosphatase (35-129) units/L Total Creatine Kinase (30-135) units/L Total Protein (6.3-8.2) g/dL Albumin (3.9-5) g/dL Albumin/Globulin Ratio % Urine Color Yellow (Yellow) Urine Turbidity Clear (Clear) Urine pH 7.0 (5.0-7.0) Ur Specific [place] 1.031 H (1.003-1.030) Urine Protein 30 mg/dl (Negative) mg/dL Urine Glucose (UA) Neg (Negative) mg/dL Urine Ketones Tr (Negative) mg/dL Urine Blood Neg (Negative) Urine Nitrite Neg (Negative) Urine Bilirubin Neg (Negative) Urine Urobilinogen 2.0 (<2.0) mg/dL Ur Leukocyte Esterase Neg (Negative) Urine WBC (Auto) 1.0 (0.0-6.0) /HPF Urine RBC (Auto) 3.0 (0.0-6.0) /HPF U Epithel Cells (Auto) 3.0 (0-13.0) /HPF Urine Bacteria (Auto) 1+ (Negative) /HPF Urine Mucus 2+ /HPF Urine Opiates Screen Negative Urine Methadone Screen Negative Ur Barbiturates Screen Negative Ur Phencyclidine Scrn Negative Ur Amphetamines Screen Negative U Benzodiazepines Scrn Positive Urine Cocaine Screen Negative U Marijuana (THC) Screen Positive Drugs of Abuse Note Disclamer - EKG Data -: EKG Interpreted by Or EKG shows normal: sinus rhythm, axis, intervals, QRS complexes, ST-T waves Rate: normal - EKG Data When compared to previous EKG there are: no significant change Interpretation: unchanged when compared t (10/16/20) - Medical Decision Making This patient presents to the emergency department after having a seizure at home and a seizure witnessed by EMS. However, at the time of my initial examination the patient is awake, alert, oriented, AAO x3. On examination she does not have any focal, motor or sensory deficits and her cranial nerves are intact. She was loaded with a gram of Keppra. EKG does not have any morphology consistent with ST elevation myocardial infarction. Labs have been unremarkable including CBC, metabolic panel, CK level, urinalysis. UDS is positive for benzodiazepines but she did receive Ativan. It is also positive for marijuana. Vital signs have been reassuring throughout her ED course including being afebrile. She was reevaluated multiple times over almost 5 hours and there has been no further seizure-like activity. As the patient did not have any neurological deficits and has a seizure history, I did not feel that the patient required CT imaging of the head at this time. She appears safe for discharge home and has been given outpatient referral for primary care and neurology. We discussed avoiding any alcohol, illicit drug use, excessive caffeine, and trying to get appropriate sleep. She will return to the emergency department with any worsening of her symptoms or with any acute distress. Critical Care Time: No Critical care attestation.: If time is entered above; I have spent that time in minutes in the direct care of this critically ill patient, excluding procedure time. ED Disposition Clinical Impression: Seizure disorder Disposition: - TO HOME OR SELFCARE Is pt being admited?: No Condition: Stable Instructions: Seizure, Adult Additional Instructions: Please follow-up with a primary care physician in the next few days. I have given you a referral for a local primary care physician, Dr. Sanchez, and a [facility]. I have given you a referral for a local neurologist, Dr. Mcnamara, to follow-up regarding your seizure history. At your request, I have also given you a referral for the local wound care clinic to evaluate the long-term michelle that you have in place. Please avoid any alcohol use, excessive caffeine use, and try to get 8 hours of uninterrupted sleep at night. Take all medications as prescribed. Due to your seizures, you are not allowed to drive or operate any heavy machinery for at least 6 months or until cleared by your primary care physician or neurologist. Return to the emergency department with any worsening of your symptoms, new or concerning symptoms not addressed during this current emergency department visit, or with any acute distress. Referrals: FÉLIX BLANDON MD [Primary Care Provider] - 3-5 Days MICKEY SANCHEZ MD [Staff Physician] - 3-5 Days MINI MCNAMARA MD [Referring] - 3-5 Days [facility] [Provider Group] - 3-5 Days [facility] [Outside] - 3-5 Days Time of Disposition: 19:21
[2021-05-30 17:04] LABS: Basophils % (Auto) 0.3 % (0.0-1.8); Eosinophils # (Auto) 0.1 K/mm3 (0.0-0.4); Eosinophils % (Auto) 1.3 % (0.0-4.3); Hematocrit 34.2 % (30.3-42.9); Hemoglobin 12.2 gm/dl (10.1-14.3); Lymphocytes % (Auto) 29.8 % (13.4-35.0); Mean Corpuscular HGB Conc 36 % (30-34); Mean Corpuscular Volume 100 fl (79-97); Monocytes # (Auto) 0.6 K/mm3 (0.0-0.8); Monocytes % (Auto) 9.3 % (0.0-7.3); Platelet Count 320 K/mm3 (140-440); Red Blood Count 3.44 M/mm3 (3.65-5.03); Red Cell Distribution Width 13.7 % (13.2-15.2)
[2021-05-30 17:24] LABS: Alanine Aminotransferase 10 units/L (7-56); Albumin 4.1 g/dL (3.9-5); Blood Urea Nitrogen 11 mg/dL (7-17); Calcium 9.2 mg/dL (8.4-10.2); Hemolysis Index 5
[2021-05-30 17:25] LABS: BUN/Creatinine Ratio 18
[2021-05-30 18:05] VITALS: BP 123/68
[2021-05-30 18:54] LABS: Bacteria,Urine 1+ /HPF (Negative); Bilirubin,Urine NEG (Negative); Blood,Urine NEG (Negative); Color,Urine Yellow (Yellow); Mucus,Urine 2+ /HPF
[2021-05-30 19:25] LABS: Amphetamine Screen,Urine Negative; Cocaine Screen,Urine Negative; Methadone Screen,Urine Negative; Opiate Screen,Urine Negative
[2021-05-30 20:08] LABS: Benzodiazepines Screen,Urine Positive; Cannabinoid Screen,Urine Positive
--- NOTE | 2021-05-31 14:32 | Electrocardiograph Report ---
[facility] Test Date: 2021-05-30 Test Time: 20:21:51 Pat Name: PAT LEVY Department: Room: Gender: F Virologist: LINDSEY : 1975 Requested By: HAN PAN Order Number: [id number] Reading MD: Jeannie Foreman Measurements Intervals [place] Rate: 72 P: 65 ID: [id number] QRS: 32 QRSD: 87 T: 18 QT: 392 QTc: 430 Interpretive Statements Sinus rhythm No previous ECG available for comparison Electronically Signed On 05-31-2021 14:32:44 EDT by Jeannie Foreman
== END 2021-05-30 20:46 | disposition home or self-care (01) ==
LOC: ED 14:59
DX: G40.909 Epilepsy, unspecified, not intractable, without status epilepticus (principal); F31.9 Bipolar disorder, unspecified; F20.9 Schizophrenia, unspecified; Z98.890 Other specified postprocedural states
CPT/HCPCS: 36415; 80053; 80307; 81001; 82550; 85025; 93005; 96365; 96366; 99284; J1953; J7030

== ENCOUNTER 2021-07-07 19:39 | Emergency (ER) | payer MEDICAID ==
[2021-07-07] MEDS ORDERED: HYDROcodone/ACETAMINOPHEN 5-325 MG TAB PO ONE (20:41)
[2021-07-07] MEDS ORDERED: levETIRAcetam 1000 MG/NS 0.75% 1,000 MG/100 ML BAG IV ONE (20:41)
[2021-07-07] MEDS ORDERED: ONDANSETRON 4 MG/2 ML INJ IV ONE (20:41)
--- NOTE | 2021-07-07 20:44 | Emergency Department Report ---
ED General Adult HPI - General Chief complaint: Seizure Stated complaint: SEIZURES Time Seen by Provider: 07/07/21 20:35 Source: patient, EMS Mode of arrival: Stretcher Limitations: No Limitations - History of Present Illness Initial comments: The patient presents to the emergency department via EMS for seizure activity. Patient states she has a history of seizures and takes Keppra for her disorder. Patient states last couple days she has not taken the Keppra. Patient complains of a mild headache which is consistent with prior seizure episodes. Patient also complains of mild back pain. Patient denies chest pain, shortness breath, or abdominal pain. It was reported that the patient received unspecified dose of lorazepam prior to arrival via EMS. -: Sudden Location: head Severity scale (0 -10): 4 Quality: aching Consistency: now resolved Improves with: medication Worsens with: none Associated Symptoms: denies other symptoms Treatments Prior to Arrival: none - Related Data Home Medications Medication Instructions Recorded Confirmed Last Taken risperiDONE [RisperDAL] 6 mg PO BID 06/19/15 10/13/16 10/13/16 Previous Rx's Medication Instructions Recorded Last Taken Type Ibuprofen [Motrin] 800 mg PO Q8HR PRN #60 tablet 08/25/15 10/13/16 Rx traMADoL [Ultram] 50 mg PO Q6HR PRN #14 tablet 08/25/15 10/13/16 Rx HYDROcodone/APAP 7.5-325 [[place] 1 each PO Q8HR PRN #10 tablet 10/27/16 Unknown Rx 7.5-325 mg TAB] Ondansetron [Zofran TAB] 4 mg PO Q8HR PRN #14 tablet 10/27/16 Unknown Rx levETIRAcetam [Keppra TAB] 1,000 mg PO BID #60 tab 08/17/20 Unknown Rx levETIRAcetam [Keppra TAB] 500 mg PO BID #30 tablet 08/17/20 Unknown Rx levETIRAcetam [Keppra TAB] 500 mg PO BID #60 tablet 07/07/21 Unknown Rx Allergies Allergy/AdvReac Type Severity Reaction Status Date / Time ibuprofen Allergy Vomiting Verified 10/16/20 10:59 ED Review of Systems ROS: Stated complaint: SEIZURES Other details as noted in HPI Comment: All other systems reviewed and negative Constitutional: denies: chills, fever Eyes: denies: eye pain, eye discharge, vision change ENT: denies: ear pain, throat pain Respiratory: denies: cough, shortness of breath, wheezing Cardiovascular: denies: chest pain, palpitations Endocrine: no symptoms reported Gastrointestinal: denies: abdominal pain, nausea, diarrhea Genitourinary: denies: urgency, dysuria, discharge Musculoskeletal: denies: back pain, joint swelling, arthralgia Skin: denies: rash, lesions Neurological: denies: headache, weakness, paresthesias Psychiatric: denies: anxiety, depression Hematological/Lymphatic: denies: easy bleeding, easy bruising ED Past Medical Hx - Past Medical History Hx Seizures: Yes Hx Psychiatric Treatment: Yes (depression, bipolar, schziophrenia) - Surgical History Additional Surgical History: Wrist fracture repair - Social History Smoking Status: Unknown if ever smoked - Medications Home Medications: Home Medications Medication Instructions Recorded Confirmed Last Taken Type risperiDONE [RisperDAL] 6 mg PO BID 06/19/15 10/13/16 10/13/16 History Ibuprofen [Motrin] 800 mg PO Q8HR PRN #60 tablet 08/25/15 10/13/16 10/13/16 Rx traMADoL [Ultram] 50 mg PO Q6HR PRN #14 tablet 08/25/15 10/13/16 10/13/16 Rx HYDROcodone/APAP 7.5-325 [[place] 1 each PO Q8HR PRN #10 tablet 10/27/16 Unknown Rx 7.5-325 mg TAB] Ondansetron [Zofran TAB] 4 mg PO Q8HR PRN #14 tablet 10/27/16 Unknown Rx levETIRAcetam [Keppra TAB] 1,000 mg PO BID #60 tab 08/17/20 Unknown Rx levETIRAcetam [Keppra TAB] 500 mg PO BID #30 tablet 08/17/20 Unknown Rx levETIRAcetam [Keppra TAB] 500 mg PO BID #60 tablet 07/07/21 Unknown Rx ED Physical Exam - General Limitations: No Limitations General appearance: alert, in no apparent distress - Head Head exam: Present: atraumatic, normocephalic - Eye Eye exam: Present: normal appearance, PERRL, EOMI - ENT ENT exam: Present: mucous membranes moist - Neck Neck exam: Present: normal inspection - Respiratory Respiratory exam: Present: normal lung sounds bilaterally. Absent: respiratory distress - Cardiovascular Cardiovascular Exam: Present: regular rate, normal rhythm. Absent: systolic murmur, diastolic murmur, rubs, gallop - GI/Abdominal GI/Abdominal exam: Present: soft, normal bowel sounds. Absent: distended, ten derness - Extremities Exam Extremities exam: Present: normal inspection - Back Exam Back exam: Present: normal inspection, other (Patient has no midline cervical spine tenderness, T-spine tenderness, or L-spine tenderness on exam) - Neurological Exam Neurological exam: Present: alert, oriented X3, CN II-XII intact. Absent: motor sensory deficit - Psychiatric Psychiatric exam: Present: normal affect, normal mood - Skin Skin exam: Present: warm, dry, intact, normal color. Absent: rash ED Course Vital Signs 07/07/21 07/07/21 07/07/21 20:04 20:10 20:15 Temperature 98.2 F Pulse Rate 81 75 Respiratory 14 13 Rate Blood Pressure 114/72 Blood Pressure 114/78 [Right] O2 Sat by Pulse 100 99 98 Oximetry 07/07/21 07/07/21 07/07/21 20:30 20:46 21:00 Temperature Pulse Rate 79 80 78 Respiratory 23 21 20 Rate Blood Pressure 114/72 107/70 Blood Pressure [Right] O2 Sat by Pulse 98 98 100 Oximetry 07/07/21 07/07/21 07/07/21 21:16 21:30 21:46 Temperature Pulse Rate 77 80 79 Respiratory 21 22 20 Rate Blood Pressure 107/70 107/70 107/70 Blood Pressure [Right] O2 Sat by Pulse 99 98 98 Oximetry 07/07/21 22:00 Temperature Pulse Rate 79 Respiratory 23 Rate Blood Pressure 106/73 Blood Pressure [Right] O2 Sat by Pulse 98 Oximetry ED Medical Decision Making - Medical Decision Making Patient given IV Keppra in the emergency department Critical care attestation.: If time is entered above; I have spent that time in minutes in the direct care of this critically ill patient, excluding procedure time. ED Disposition Clinical Impression: Witnessed seizure-like activity Disposition: HOME / SELF CARE / HOMELESS Is pt being admited?: No Does the pt Need Aspirin: No Condition: Stable Instructions: Seizure, Adult Additional Instructions: Return if worse Referrals: MICKEY CLIFTON MD [Staff Physician] - 3-5 Days Time of Disposition: 22:35
[2021-07-08 00:47] VITALS: BP 109/74
== END 2021-07-08 00:45 | disposition home or self-care (01) ==
LOC: ED 19:39
DX: R56.9 Unspecified convulsions (principal); Z88.8 Allergy status to other drugs, medicaments and biological substances
CPT/HCPCS: 96365; 96375; 99283; J1953; J2405; 96374

== ENCOUNTER 2021-08-31 20:58 | Emergency (ER) | payer MEDICAID ==
[2021-08-31] MEDS ORDERED: levETIRAcetam 1000 MG/NS 0.75% 1,000 MG/100 ML BAG IV ONE ×2 (21:06→23:50)
[2021-08-31] MEDS ORDERED: SODIUM CHLORIDE 0.9% 1000 ML 1,000 ML IV ONE (21:06)
--- NOTE | 2021-08-31 21:15 | Emergency Department Report ---
HPI - General Time Seen by Provider: 08/31/21 21:05 - HPI HPI: 46-year-old -[place] female presents to the emergency department via EMS from home with complaint of seizure-like activity. EMS says that the patient had a seizure for about 12 minutes and then it stopped without any medication given. As soon as they got her into the ambulance she once again had some seizu re-like activity. She was given Ativan and the seizure stopped shortly afterwards. At the time of my examination the patient is awake, alert, oriented, AAO x3. She complains of a mild generalized headache and some soreness to her back. Patient takes Keppra and is relatively compliant but did not yet take it today. She denies any fever, chest pain, shortness of breath, lower extremity swelling, nausea, vomiting. No recent travel or sick contacts at home. ED Past Medical Hx - Past Medical History Hx Seizures: Yes Hx Psychiatric Treatment: Yes (depression, bipolar, schziophrenia) - Surgical History Additional Surgical History: Wrist fracture repair - Social History Smoking Status: Unknown if ever smoked - Medications Home Medications: Home Medications Medication Instructions Recorded Confirmed Last Taken Type risperiDONE [RisperDAL] 6 mg PO BID 06/19/15 10/13/16 10/13/16 History Ibuprofen [Motrin] 800 mg PO Q8HR PRN #60 tablet 08/25/15 10/13/16 10/13/16 Rx traMADoL [Ultram] 50 mg PO Q6HR PRN #14 tablet 08/25/15 10/13/16 10/13/16 Rx HYDROcodone/APAP 7.5-325 [[place] 1 each PO Q8HR PRN #10 tablet 10/27/16 Unknown Rx 7.5-325 mg TAB] Ondansetron [Zofran TAB] 4 mg PO Q8HR PRN #14 tablet 10/27/16 Unknown Rx levETIRAcetam [Keppra TAB] 1,000 mg PO BID #60 tab 08/17/20 Unknown Rx levETIRAcetam [Keppra TAB] 500 mg PO BID #30 tablet 08/17/20 Unknown Rx levETIRAcetam [Keppra TAB] 500 mg PO BID #60 tablet 07/07/21 Unknown Rx levETIRAcetam [Keppra TAB] 1,000 mg PO BID #60 tab 09/01/21 Unknown Rx ED Review of Systems ROS: Stated complaint: SEIZURES Other details as noted in HPI Comment: All other systems reviewed and negative Constitutional: denies: chills, fever Eyes: denies: eye pain, vision change ENT: denies: ear pain, throat pain Respiratory: denies: cough, shortness of breath Cardiovascular: denies: chest pain, palpitations Gastrointestinal: denies: abdominal pain, vomiting Genitourinary: denies: dysuria, discharge Musculoskeletal: back pain. denies: arthralgia Skin: denies: rash, lesions Neurological: headache, other (seizure) Physical Exam - Physical Exam Physical Exam: GENERAL: The patient is well-developed well-nourished. HENT: Normocephalic. Atraumatic. Patient has moist mucous membranes. EYES: Extraocular motions are intact. No nystagmus. NECK: Supple. Trachea is midline. CHEST/LUNGS: Clear to auscultation. There is no respiratory distress noted. HEART/CARDIOVASCULAR: Regular. There is no tachycardia. There is no murmur. ABDOMEN: Abdomen is soft, nontender. Patient has normal bowel sounds. SKIN: Skin is warm and dry. NEURO: The patient is awake, alert, and oriented. The patient is cooperative. The patient has no focal neurologic deficits. Normal speech. Cranial nerves II through XII grossly intact. No facial asymmetry. MUSCULOSKELETAL: There is no tenderness or deformity. There is no limitation ra nge of motion. ED Medical Decision Making - Lab Data Result diagrams: 08/31/21 21:11 08/31/21 21:11 Lab Results 08/31/21 08/31/21 08/31/21 Range/Units 21:11 21:11 21:11 WBC 4.3 L (4.5-11.0) K/mm3 RBC 3.66 (3.65-5.03) M/mm3 Hgb 12.3 (10.1-14.3) gm/dl Hct 36.3 (30.3-42.9) % MCV 99 H (79-97) fl MCH 34 H (28-32) pg MCHC 34 (30-34) % RDW 12.5 L (13.2-15.2) % Plt Count 264 (140-440) K/mm3 Lymph % (Auto) 35.8 H (13.4-35.0) % [place] % (Auto) 12.8 H (0.0-7.3) % Eos % (Auto) 2.2 (0.0-4.3) % Baso % (Auto) 1.0 (0.0-1.8) % Lymph # (Auto) 1.5 (1.2-5.4) K/mm3 [place] # (Auto) 0.5 (0.0-0.8) K/mm3 Eos # (Auto) 0.1 (0.0-0.4) K/mm3 Baso # (Auto) 0.0 (0.0-0.1) K/mm3 Seg Neutrophils % 48.2 (40.0-70.0) % Seg Neutrophils # 2.1 (1.8-7.7) K/mm3 Sodium 141 (137-145) mmol/L Potassium 3.6 (3.6-5.0) mmol/L Chloride 104.2 (98-107) mmol/L Carbon Dioxide 22 (22-30) mmol/L Anion Gap 18 mmol/L BUN 7 (7-17) mg/dL Creatinine 0.6 (0.6-1.2) mg/dL Estimated GFR > 60 ml/min BUN/Creatinine Ratio 12 % Glucose 85 (65-100) mg/dL Calcium 8.8 (8.4-10.2) mg/dL Total Bilirubin 0.50 (0.1-1.2) mg/dL AST 17 (5-40) units/L ALT 14 (7-56) units/L Alkaline Phosphatase 69 (35-129) units/L Total Creatine Kinase 279 H (30-135) units/L Total Protein 7.5 (6.3-8.2) g/dL Albumin 4.3 (3.9-5) g/dL Albumin/Globulin Ratio 1.3 % Plasma/Serum Alcohol 0.03 (0-0.07) % - Medical Decision Making This patient presents to the emergency department after having some seizure-like activity prior to presentation and in route with EMS. At the time of my examination the patient is awake, alert, oriented, AAO x3. She does not have any focal, motor or sensory deficits and her cranial nerves are intact. Supposedly the patient has been compliant with her medication except for today, but the patient does admit that she is out of her medication which is Keppra 1000 mg twice daily. Labs have been mostly unremarkable including CBC, metabolic panel, normal CK level, and blood alcohol level is only slightly elevated at 0.03. Patient was given a loading dose of Keppra and some IV fluid resuscitation. She was also given a dose of Ativan, not as treatment of the seizures, but because she complains of some anxiety. Patient was reevaluated multiple times over about 4 hours and there has been no return of any seizure-like activity or change in mental status. Vital signs have been reassuring including being afebrile. For all these reasons she appears safe for discharge home at this time. She has been given a prescription for her Keppra and an outpatient referral for neurology. She will return to the emergency department with any worsening of her symptoms or with any acute distress. Critical Care Time: No Critical care attestation.: If time is entered above; I have spent that time in minutes in the direct care of this critically ill patient, excluding procedure time. ED Disposition Clinical Impression: Seizure disorder Disposition: 01 HOME / SELF CARE / HOMELESS Is pt being admited?: No Condition: Stable Instructions: Seizure, Adult Additional Instructions: Please follow-up with a primary care physician in the next few days. I have given you a referral for a local neurologist, Dr. Mcnamara, to follow-up regarding your seizure disorder. I am refilling your Keppra. Please take medications as prescribed. Please avoid any alcohol use, illicit drug use, excessive caffeine use, as these can decrease your seizure threshold. Because of your seizures, you are unable to drive or operate any heavy machinery for at least 6 months or until cleared by a neurologist. Return to the emergency department with any worsening of your symptoms, new or concerning symptoms not addressed during this current emergency department visit, or with any acute distress. Prescriptions: levETIRAcetam [Keppra TAB] 1,000 mg PO BID #60 tab Referrals: [facility] [Other] - 2-3 Days MINI MCNAMARA MD [Referring] - 2-3 Days Time of Disposition: 00:35
[2021-08-31 21:28] LABS: Eosinophils # (Auto) 0.1 K/mm3 (0.0-0.4); Eosinophils % (Auto) 2.2 % (0.0-4.3); Hematocrit 36.3 % (30.3-42.9); Hemoglobin 12.3 gm/dl (10.1-14.3); Lymphocytes # (Auto) 1.5 K/mm3 (1.2-5.4); Lymphocytes % (Auto) 35.8 % (13.4-35.0); Mean Corpuscular HGB Conc 34 % (30-34); Mean Corpuscular Volume 99 fl (79-97); Monocytes # (Auto) 0.5 K/mm3 (0.0-0.8); Monocytes % (Auto) 12.8 % (0.0-7.3); Platelet Count 264 K/mm3 (140-440); Red Blood Count 3.66 M/mm3 (3.65-5.03); Red Cell Distribution Width 12.5 % (13.2-15.2)
[2021-08-31 21:47] LABS: Alanine Aminotransferase 14 units/L (7-56); Albumin 4.3 g/dL (3.9-5); Blood Urea Nitrogen 7 mg/dL (7-17); Calcium 8.8 mg/dL (8.4-10.2); Hemolysis Index 6
[2021-08-31 21:50] LABS: BUN/Creatinine Ratio 12
[2021-08-31] MEDS ORDERED: LORazepam 2 MG/ML VIAL IV ONE (23:27)
[2021-09-01 03:57] VITALS: BP 118/75
== END 2021-09-01 02:00 | disposition home or self-care (01) ==
LOC: ED 20:58
DX: G40.909 Epilepsy, unspecified, not intractable, without status epilepticus (principal); F20.9 Schizophrenia, unspecified; F32.9 Major depressive disorder, single episode, unspecified
CPT/HCPCS: 36415; 80053; 82550; 85025; 96374; 96375; 99283; J1953; J2060; J7030; 80320; G0480